=== PATIENT | female | born 1980 | race American Indian/Alaskan Native ===

== ENCOUNTER 2019-01-23 11:39 | Emergency (ER) | payer SELFPAY ==
--- NOTE | 2019-01-23 11:48 | Event Note ---
ED Screening Note ED Screening Note: pt presents for left axilla abscess that began 4 days ago states she has had them in the past last one two years ago no fever not draining PMHx HTN has not taken her BP medication since january 17 This initial assessment/diagnostic orders/clinical plan/treatment(s) is/are subject to change based on patients health status, clinical progression and re- assessment by fellow clinical providers in the ED. Further treatment and workup at subsequent clinical providers discretion. Patient/guardian urged not to elope from the ED as their condition may be serious if not clinically assessed and managed.
--- NOTE | 2019-01-23 12:59 | Emergency Department Report ---
ED General Adult HPI - General Chief complaint: Skin/Abscess/Foreign Body Stated complaint: BOIL UNDER ARM Time Seen by Provider: 01/23/19 11:46 Source: patient Mode of arrival: Ambulatory Limitations: No Limitations - History of Present Illness Initial comments: Patient presents to the emergency department with a chief complaint of abscess to her left armpit. Patient states she has a history of having multiple abscesses to her left and right arm pits. Patient complains of pain with movement. Patient denies fever. -: Sudden Location: upper extremity Severity scale (0 -10): 7 Quality: sharp Consistency: constant Improves with: rest Worsens with: movement Associated Symptoms: denies other symptoms Treatments Prior to Arrival: none - Related Data Previous Rx's Medication Instructions Recorded Last Taken Type Acetaminophen/Codeine [Tylenol 1 tab PO Q6H PRN #15 tab 01/23/19 Unknown Rx /Codeine # 3 tab] Sulfamethoxazole/Trimethoprim 2 each PO BID #28 tablet 01/23/19 Unknown Rx [Bactrim DS TAB] Allergies Allergy/AdvReac Type Severity Reaction Status Date / Time adhesive tape Allergy Rash Verified 01/23/19 11:41 ED Review of Systems ROS: Stated complaint: BOIL UNDER ARM Other details as noted in HPI Constitutional: denies: chills, fever Eyes: denies: eye pain, eye discharge, vision change ENT: denies: ear pain, throat pain Respiratory: denies: cough, shortness of breath, wheezing Cardiovascular: denies: chest pain, palpitations Endocrine: no symptoms reported Gastrointestinal: denies: abdominal pain, nausea, diarrhea Genitourinary: denies: urgency, dysuria, discharge Musculoskeletal: denies: back pain, joint swelling, arthralgia Skin: denies: rash, lesions Neurological: denies: headache, weakness, paresthesias Psychiatric: denies: anxiety, depression Hematological/Lymphatic: denies: easy bleeding, easy bruising ED Past Medical Hx - Past Medical History Hx Hypertension: Yes Hx Arthritis: Yes - Surgical History Additional Surgical History: C/S - Social History Smoking Status: Current Every Day Smoker Substance Use Type: None - Medications Home Medications: Home Medications Medication Instructions Recorded Confirmed Last Taken Type Acetaminophen/Codeine [Tylenol 1 tab PO Q6H PRN #15 tab 01/23/19 Unknown Rx /Codeine # 3 tab] Sulfamethoxazole/Trimethoprim 2 each PO BID #28 tablet 01/23/19 Unknown Rx [Bactrim DS TAB] ED Physical Exam - General Limitations: No Limitations General appearance: alert, in no apparent distress - Head Head exam: Present: atraumatic, normocephalic - Eye Eye exam: Present: normal appearance - ENT ENT exam: Present: mucous membranes moist - Neck Neck exam: Present: normal inspection - Respiratory Respiratory exam: Present: normal lung sounds bilaterally. Absent: respiratory distress - Extremities Exam Extremities exam: Present: normal inspection, other (patient has had hidradenitis suppurativa of the left axilla with no surrounding cellulitis. There is signs of multiple I&D's to that site) - Back Exam Back exam: Present: normal inspection - Neurological Exam Neurological exam: Present: alert, oriented X3 - Psychiatric Psychiatric exam: Present: normal affect, normal mood - Skin Skin exam: Present: warm, dry, intact, normal color. Absent: rash ED Course Vital Signs 01/23/19 11:46 Temperature 98.0 F Pulse Rate 65 Respiratory 18 Rate Blood Pressure 180/106 O2 Sat by Pulse 100 Oximetry ED Medical Decision Making - Medical Decision Making Discussed with patient the plan of care which included her following up in the surgical clinic for further evaluation Patient states she's never been evaluated by a surgeon for this condition but has had it drained multiple times at urgent cares to no avail Discussed with patient and need to use warm compresses and to take the medications provided via prescription Critical care attestation.: If time is entered above; I have spent that time in minutes in the direct care of this critically ill patient, excluding procedure time. ED Disposition Clinical Impression: Hidradenitis suppurativa, Hidradenitis suppurativa of left axilla Disposition: DC- TO HOME OR SELFCARE Is pt being admited?: No Does the pt Need Aspirin: No Condition: Stable Instructions: Abscess (ED) Additional Instructions: return if worse Prescriptions: Sulfamethoxazole/Trimethoprim [Bactrim DS TAB] 2 each PO BID #28 tablet Acetaminophen/Codeine [Tylenol /Codeine # 3 tab] 1 tab PO Q6H PRN #15 tab PRN Reason: pain Referrals: [facility] MD KOLE [Primary Care Provider] - 3-5 Days MONCHO MCCLOUD DO [Staff Physician] - 3-5 Days Time of Disposition: 12:57
[2019-01-23 13:13] VITALS: BP 174/100
== END 2019-01-23 13:11 | disposition home or self-care (01) ==
LOC: ED 11:39
DX: L73.2 Hidradenitis suppurativa (principal); I10 Essential (primary) hypertension; M19.90 Unspecified osteoarthritis, unspecified site; F17.200 Nicotine dependence, unspecified, uncomplicated; Z91.048 Other nonmedicinal substance allergy status